=== PATIENT | female | born 1945 | race Caucasian/White ===

== ENCOUNTER → 2017-05-15 | Outpatient (CLI) | payer OTHER ==
[~2017-05-15] MED LIST: ALEVE220 M2 PO; ALLEGRA180 MG PO; ALLEGRA30 MG PO; ALOE VERA1 EACH PO; AMLODIPINE BESYL5 MG PO; ASPIRIN325 MG PO; BIOFREEZE; CALCIUM-MAGNES1 EAC9 PO; CIPROFLOXACIN500 M1 PO; FLONASE16 G1 BOTH NARES; LEXAPRO10 MG PO; LOSARTAN POTAS100 MG PO; LOSARTAN-HCTZ1 EAC1 PO; MECLIZINE HCL25 MG PO; MOTRIN800 MG PO; NORVASC10 MG PO; PATANOL OP100 DROP/5 BOTH EYES; SINGULAIR10 MG PO; TYLENOL EXTRA500 MG PO; WELLBUTRIN XL300 MG PO; WELLBUTRIN75 MG PO; ZOLOFT25 MG PO
== END | disposition home or self-care (01) ==
DX: M17.11 Unilateral primary osteoarthritis, right knee (principal); R26.2 Difficulty in walking, not elsewhere classified; M25.561 Pain in right knee; M25.661 Stiffness of right knee, not elsewhere classified; M62.81 Muscle weakness (generalized); Z74.1 Need for assistance with personal care
CPT/HCPCS: 97150 GO; 97161 GP; 97165 GO; 97530 GP; G8978 GP; G8979 GP; G8980 GP; G8987 GO; G8988 GO; G8989 GO

== ENCOUNTER 2017-05-27 22:07 | Inpatient (IN) | payer OTHER ==
[~2017-05-27] VITALS: Ht 165.1 cm; Wt 121.9 kg
[~2017-05-27 22:07] MED LIST changes: +ALEVE220 MG PO; +BIOFREEZE GEL TP; +FERROUS SULFAT325 MG PO; +MYRBETRIQ25 MG PO
[2017-05-28 11:28] VITALS: BP 143/74
[2017-05-28 16:20] LABS: HEMATOCRIT 37.9 % (36.0-46.0); MCH 32.2 PG (29.0-34.0); MCHC 32.7 G/DL (30.0-36.0); MCV 98.4 FL (83-99); RBC DIS.WIDTH-SD 46.3 % (39-53); RED BLOOD COUNT 3.85 M/uL (3.80-5.20); WHITE BLOOD COUNT 7.9 K/uL (4.1-10.2)
[2017-05-28 16:35] LABS: HEMOGLOBIN 12.4 G/DL (11.9-15.5); PLATELET COUNT 135 K/uL (156-360)
[2017-05-28 19:53] VITALS: BP 124/60
[2017-05-29 00:03] VITALS: BP 133/62
[2017-05-29 03:32] VITALS: BP 125/65
[2017-05-29 05:53] LABS: HEMATOCRIT 39.7 % (36.0-46.0); HEMOGLOBIN 13.1 G/DL (11.9-15.5); MCV 98.3 FL (83-99)
[2017-05-29 06:03] LABS: CHLORIDE 110 MEQ/L (99-109); CREATININE 0.8 MG/DL (0.6-1.3); GFR ESTIMATE (CALCULATED) > 59 mL/min/; GLUCOSE 155 mg/dL (70-99); POTASSIUM 3.9 MEQ/L (3.7-5.4); SODIUM 138 MEQ/L (136-147); UREA NITROGEN (BUN) 16 mg/dL (9-23)
[2017-05-29 08:45] VITALS: BP 119/71
[2017-05-29 12:24] VITALS: BP 132/63
[2017-05-29 16:48] VITALS: BP 130/62
[2017-05-29 23:37] VITALS: BP 158/69
[2017-05-30 05:23] LABS: HEMATOCRIT 37.2 % (36.0-46.0); HEMOGLOBIN 12.2 G/DL (11.9-15.5); MCV 96.9 FL (83-99)
[2017-05-30 07:28] VITALS: BP 146/65
[2017-05-30 16:24] VITALS: BP 126/74
[2017-05-31 00:08] VITALS: BP 136/64
[2017-05-31 07:40] VITALS: BP 137/65
[2017-05-31] MEDS ORDERED: DOCUSATE SODIU100 MG PO (09:14)
[2017-05-31] MEDS ORDERED: CELECOXIB200 MG PO (09:15)
[2017-05-31] MEDS ORDERED: LOVENOX40 MG/0.4 SC (09:15)
[2017-05-31] MEDS ORDERED: ENDOCET 5-3251 EACH PO (09:15)
== END 2017-05-31 15:36 | DRG 470 ==
LOC: ENRESERV 22:07 → 2SOUTH 05-28 10:24 → 3EAST 05-28 10:24 → 2SOUTH 05-28 11:05 → ENRESERV 05-28 14:09 → 2SOUTH 05-28 16:05 → 3EAST 05-28 17:34
PROVIDERS: Orthopaedic Surgery
PROC: 0SRC0J9 Replacement of Right Knee Joint with Synthetic Substitute, Cemented, Open Approach (ICD-10-PCS; principal; 2017-05-28)
DX: M17.11 Unilateral primary osteoarthritis, right knee (principal); I10 Essential (primary) hypertension; F32.9 Major depressive disorder, single episode, unspecified; G47.30 Sleep apnea, unspecified; M25.561 Pain in right knee; M21.161 Varus deformity, not elsewhere classified, right knee; E66.9 Obesity, unspecified; Z68.41 Body mass index [BMI] 40.0-44.9, adult; Z88.5 Allergy status to narcotic agent; Z79.82 Long term (current) use of aspirin
CPT/HCPCS: 71045; 73560; 80048; 85014; 85018; 85027; C1713; J0131; J0690; J1170; J1650; J1885; J2250; J2405; J2765; J2795; J3010; J7050